=== PATIENT | female | born 1995 | race Caucasian/White ===

== ENCOUNTER → 2016-07-24 | Outpatient (CLI) | payer OTHER ==
--- NOTE | 2016-07-26 10:52 | DI ---
Indication: ITS.REASON: S89.92XA INJURY recent fall with knee dislocation and pain PROCEDURE: MRI KNEE LEFT W/O CONTRAST: Encounter: Initial Comparison: None Technique: Multiplanar multisequence MR imaging of the left knee was performed without contrast. Findings: The lateral meniscus appears grossly intact. Medial meniscus appears maintained. The ACL and PCL are intact. The MCL and lateral collateral ligament complex are intact. The extensor mechanism is intact. Focal edema in the lateral femoral condyle and the medial aspect of the patella. There is disruption of the medial patellar retinaculum. Large joint effusion is present. There are no displaced cartilaginous fragments identified. The cartilage of the medial, lateral and patellofemoral compartments is maintained. No acute fracture line seen. No Real's cyst. Muscular signal intensity is normal. Impression: Recent transient lateral patellar dislocation with tearing of the medial patellar retinaculum. .
== END ==
LOC: IMA 16:32
PROVIDERS: ATTEND Family Medicine Sports Medicine
DX: S83.015A Lateral dislocation of left patella, initial encounter (principal); S86.812A Strain of other muscle(s) and tendon(s) at lower leg level, left leg, initial encounter; W10.8XXA Fall (on) (from) other stairs and steps, initial encounter; Y93.9 Activity, unspecified; Y92.009 Unspecified place in unspecified non-institutional (private) residence as the place of occurrence of the external cause; Y99.0 Civilian activity done for income or pay; S89.92XA Unspecified injury of left lower leg, initial encounter